=== PATIENT | female | born 1975 | race Hispanic/Latino ===

== ENCOUNTER 2018-09-06 10:18 | Outpatient (CLI) | payer OTHER | END 2018-09-06 10:19 | disposition home or self-care (01) | LOC: C.MAMMO 10:19 ==

== ENCOUNTER 2018-11-04 09:20 | Outpatient (CLI) | payer OTHER | END 2018-11-04 09:21 | disposition home or self-care (01) | LOC: C.CARD 09:20 | DX: I10 Essential (primary) hypertension (principal) ==